=== PATIENT | male | born 1950 | race Caucasian/White ===

== ENCOUNTER 2018-04-03 15:17 | Emergency (ER) | payer MEDICARE ==
[~2018-04-03] VITALS: Ht 170.2 cm; Wt 92.2 kg
[2018-04-03 15:28] VITALS: BP 152/78
[2018-04-03] MEDS ORDERED: PROPOFOL 200 MG/20 ML VIAL IV ONE (16:45)
[2018-04-03 18:29] VITALS: BP 147/72
== END 2018-04-03 18:28 | disposition home or self-care (01) ==
LOC: MED 15:17
DX: S43.014A Anterior dislocation of right humerus, initial encounter (principal); S00.81XA Abrasion of other part of head, initial encounter; I10 Essential (primary) hypertension; W18.39XA Other fall on same level, initial encounter; Y93.89 Activity, other specified; Y92.148 Other place in prison as the place of occurrence of the external cause; Y99.8 Other external cause status
CPT/HCPCS: 23650; 73020; 99285; G0500; J2704; Q0092

== ENCOUNTER 2019-05-16 21:47 | Emergency (ER) | payer MEDICARE ==
[~2019-05-16] VITALS: Ht 170.2 cm; Wt 88.0 kg
[2019-05-16 22:09] VITALS: BP 166/88
--- NOTE | 2019-05-16 22:12 | NUR ---
PT AMBULATED TO BED #10
--- NOTE | 2019-05-16 22:30 | NUR ---
PATIENT WAS SEEN, TREATED, AND DISCHARGED BY DR HERNANDEZ. Patient discharged with v/s stable. Written and verbal after care instructions about viral and bacterial pharyngitis given and explained. Patient alert, oriented and verbalized understanding of instructions. Ambulatory with steady gait. All questions addressed prior to discharge. ID band removed. Patient advised to follow up with PMD. Rx of Augmentin given. Patient educated on indication of medication including possible reaction and side effects. Opportunity to ask questions provided and answered.
[2019-05-16 22:37] VITALS: BP 166/88
== END 2019-05-16 22:30 | disposition home or self-care (01) ==
LOC: MED 21:47
DX: J02.9 Acute pharyngitis, unspecified (principal); I10 Essential (primary) hypertension
CPT/HCPCS: 99283

== ENCOUNTER 2020-03-07 11:18 | Inpatient (IN) | payer MEDICARE, SELFPAY ==
[~2020-03-07] VITALS: Ht 170.2 cm; Wt 83.9 kg
[2020-03-07 11:26] VITALS: BP 127/73
--- NOTE | 2020-03-07 11:27 | NUR ---
PATIENT AMBULATED WITH STEADY GAIT TO BED 3.
--- NOTE | 2020-03-07 11:34 | NUR ---
69 YEAR OLD MALE COMPLAINS OF COUGH X 1 WEEK. PT DENIES SOB, BUT O2 SATURATION 89% ON RA. PT PLACED ON 3L NC, O2 SATURATION NOW 95%, RR 21. PT AOX4, BREATHING EVEN AND UNLABORED, SKIN WARM AND DRY. BED IN LOWEST POSITION, LOCKED, BED RAIL UPX1. PMH - HTN ALLERGIES - NKA
--- NOTE | 2020-03-07 12:27 | NUR ---
Influenza, Covid PCR and Teresa swab collected.
[2020-03-07 13:02] LABS: BASOPHILS % (AUTO) 0.7 % (0.0-2.0); HEMATOCRIT 41.7 % (36-52); LYMPHOCYTES # (AUTO) 0.9 K/uL (2.0-11.5); LYMPHOCYTES % (AUTO) 17.3 % (20.5-51.1); MEAN CORPUSCULAR HEMOGLOBIN 31 pg (27-31); MEAN CORPUSCULAR HGB CONC 34 g/dL (33-37); MEAN CORPUSCULAR VOLUME 93.1 fL (80-94); MONOCYTES # (AUTO) 0.4 K/uL (0.8-1.0); NEUTROPHILS # (AUTO) 3.8 K/uL (1.8-7.7); PLATELET COUNT (AUTO) 195 K/uL (140-450); RED BLOOD CELL COUNT(AUTO) 4.48 MIL/uL (4.20-6.10); RED CELL DISTRIBUTION WIDTH 13.1 % (11.6-13.7); WHITE BLOOD COUNT (AUTO) 5.1 K/uL (4.8-10.8)
[2020-03-07 13:23] LABS: APPEARANCE,URINE CLEAR (CLEAR); BILIRUBIN,URINE 1+ (NEGATIVE); BLOOD, URINE NEGATIVE (NEGATIVE); COLOR,URINE YELLOW (YELLOW); LEUKOCYTE ESTERASE ,URINE NEGATIVE (NEGATIVE); NITRITE, URINE NEGATIVE (NEGATIVE); UGLUCOSE NEGATIVE (NEGATIVE)
[2020-03-07 13:37] LABS: LACTATE DEHYDROGENASE 319 U/L (85-227)
[2020-03-07] MEDS ORDERED: AZITHROMYCIN 500 MG in DEXTROSE 5% 250 ML IV ONE (13:45)
[2020-03-07] MEDS ORDERED: DEXAMETHASONE 4 MG/ML VIAL IVP ONE (13:45)
[2020-03-07 13:46] LABS: ANION GAP 13.1 (8-16); CARBON DIOXIDE 25.4 mmol/L (21-32); CREATININE 0.7 mg/dL (0.6-1.3); POTASSIUM 3.5 mmol/L (3.5-5.1); TOTAL BILIRUBIN 0.3 mg/dL (0.0-1.0)
[2020-03-07] MEDS ORDERED: cefTRIAXone 1,000 MG VIAL ONE (13:55)
[2020-03-07 14:08] LABS: C-REACTIVE PROTEIN QUANT 13.8 mg/dL (0.0-0.9)
[2020-03-07] MEDS ORDERED: ENAL-197 PO (14:17)
--- NOTE | 2020-03-07 14:30 | NUR ---
PT ALERT AND AWAKE, BREATHING EVEN AND UNLABORED. NO DISTRESS NOTED.
[2020-03-07] MEDS ORDERED: AZITHROMYCIN 500 MG INJ VIAL IV ONE (14:33)
[2020-03-07] MEDS ORDERED: HYDROcodone/APAP 7.5/325 MG 1 TAB PO PRN (15:00)
[2020-03-07] MEDS ORDERED: DOCUSATE SODIUM 100 MG GELCAP PO PRN (15:00)
[2020-03-07] MEDS ORDERED: ACETAMINOPHEN 325 MG TAB PO PRN (15:00)
[2020-03-07] MEDS ORDERED: ONDANSETRON 4 MG/2 ML VIAL IM/IVP PRN (15:00)
[2020-03-07] MEDS ORDERED: guaiFENesin DM 200/20 MG-10 ML 10 ML UDC PO PRN (15:00)
[2020-03-07] MEDS ORDERED: POTASSIUM CHLORIDE 10 MEQ TABER PO PRN (15:00)
[2020-03-07] MEDS ORDERED: ZOLPIDEM 5 MG TAB PO PRN (15:00)
[2020-03-07] MEDS ORDERED: ALBUTEROL SULFATE/IPRATROPIU 3 ML SOL IH PRN (15:05)
[2020-03-07] MEDS ORDERED: ALBUTEROL HFA MDI 90 MCG/ACTUATION 8 GM INH PRN (15:05)
[2020-03-07] MEDS: NACL 0.9% 1,000 ML IV SCH (15:29)
[2020-03-07 16:12] LABS: BARBITURATE, URINE NEGATIVE ng/ml (NEG <=200); BENZODIAZEPINE, URINE NEGATIVE ng/mL (NEG <=200); CANNABINOID, URINE NEGATIVE ng/mL (NEG <=50); COCAINE, URINE NEGATIVE ng/mL (NEG <=300); OPIATE, URINE NEGATIVE ng/mL (NEG <=2000); PHENCYCLIDINE SCREEN,URINE NEGATIVE ng/mL (NEG <=25)
[2020-03-07 16:31] LABS: CHOL/HDL RATIO 3.1 (1-4.5); FREE T4 (FREE THYROXINE) 1.25 ng/dL (0.76-1.46); MAGNESIUM 2.3 mg/dL (1.8-2.4); THYROID STIMULATING HORMONE 1.15 uIU/mL (0.34-3.74)
--- NOTE | 2020-03-07 16:48 | NUR ---
PT ALERT AND AWAKE, BREATHING EVEN AND UNLABORED. NO DISTRESS NOTED.
--- NOTE | 2020-03-07 18:35 | NUR ---
PT ALERT AND AWAKE, BREATHING EVEN AND UNLABORED. NO DISTRESS NOTED.
[2020-03-07] MEDS ORDERED: ALBUTEROL SULFATE/IPRATROPIU 3 ML SOL IH SCH (19:00)
--- NOTE | 2020-03-07 19:20 | NUR ---
RECEIVED REPORT FROM MARIELY BURCH FOR CONTINUITY OF CARE.
--- NOTE | 2020-03-07 19:20 | NUR ---
REPORT GIVEN TO TOMMY BURCH, TRANSFER OF CARE AT THIS TIME.
--- NOTE | 2020-03-07 19:45 | NUR ---
PT OBSERVED SITTING IN BED IN NO ACUTE DISTRESS NOTED. BREATHING EVEN AND UNLABORED SPO2 91% VIA NC AT 2 L OF OXYGEN. IVF OF 0.9% NS RUNNING AT THIS TIME ON HIS IV R AC. HE PRESENTS WITH A PRODUCTIVE COUGH. ON CARDIAC MONITORING, BP MONITORING, AND PULSE OXIMETRY. WILL CONTINUE TO MONITOR.
--- NOTE | 2020-03-07 20:15 | NUR ---
PT WAS GIVEN HIS DINNER AT THIS TIME.
--- NOTE | 2020-03-07 20:45 | NUR ---
PT ATE 100% OF HIS DINNER.
--- NOTE | 2020-03-07 21:20 | NUR ---
PT WAS NOTED DESATURATING WHILE ON 2 L VIA NC, INCREASED PT'S OXYGEN AT THIS TIME TO 4 L. WILL CONTINUE TO MONITOR.
--- NOTE | 2020-03-07 23:32 | NUR ---
PT SITTING IN BED IN NO ACUTE DISTRESS NOTED. BREATHING EVEN AND UNLABORED EVIDENCE BY RISE AND FALL OF CHEST WALL. O2 SAT AT 95% ON 4L OF OXYGEN. REMAINS ON CARDIAC MONITORING, BP MONITORING, AND PULSE OXIMETRY.
--- NOTE | 2020-03-08 00:50 | NUR ---
PT WAS NOTED DESATURATING ON 4 L OF OXYGEN VIA NC. PT'S PXYGEN WAS INCREASED FROM 4L TO 6 L. SATURATION IMPROVED FROM 89% TO 92%.
--- NOTE | 2020-03-08 02:31 | NUR ---
PT LAYING IN BED IN NO ACUTE DISTRESS NOTED. BREATHING EVEN AND UNLABORED EVIDENCE BY RISE AND FALL OF CHEST WALL. O2 SAT AT 92% ON 6L OF OXYGEN. REMAINS ON CARDIAC MONITORING, BP MONITORING, AND PULSE OXIMETRY.
--- NOTE | 2020-03-08 05:46 | NUR ---
PT LAYING IN BED IN NO ACUTE DISTRESS NOTED. BREATHING EVEN AND UNLABORED EVIDENCE BY RISE AND FALL OF CHEST WALL. O2 SAT AT 94% ON 6L OF OXYGEN. REMAINS ON CARDIAC MONITORING, BP MONITORING, AND PULSE OXIMETRY.
--- NOTE | 2020-03-08 07:23 | NUR ---
REPORT GIVEN TO WINSTON BURCH FOR CONTINUITY OF CARE.
--- NOTE | 2020-03-08 07:32 | NUR ---
ASSUMED CARE OF PATIENT FROM KIERSTEN SANCHEZ. A/O X 4, VSS, NAD, RR EVEN AND UNLABORED. PATIENT DENIES PAIN AT THIS TIME. AWAITING TELE BED. WILL CONTINUE TO MONITOR.
[2020-03-08 08:07] LABS: T4 (THYROXINE) 6.5 ug/dL (4.5-12.0)
[2020-03-08 09:00] VITALS: BP 147/83
[2020-03-08] MEDS ORDERED: ASCORBIC ACID 500 MG TAB PO SCH (09:00)
[2020-03-08] MEDS ORDERED: ZINC SULF 220 MG CAP PO SCH (09:00)
[2020-03-08] MEDS ORDERED: AZITHROMYCIN 250 MG TAB PO SCH (09:00)
--- NOTE | 2020-03-08 09:00 | NUR ---
ADMITTED A MALE 69 Y/O FROM ER VIA GURNEY WITH THE CHIEF COMPLAINT OF COUGH AND BODY ACHES X 1 WEEK. PATIENT ALERT AWAKE ORIENTED X4, NOT IN ANY DISTRESS NOTED. WITH O2 @ 6L NC SATURATION 92%. DENIES PAIN. NO IV WHEN PATIENT CAME CALLED ER AND PUT IV ON THE RIGHT AC GAUGE 20. PUT ON MONITOR AND SHOWS SR, NO ECTOPY NOTED. NO SOB NOTED. ORIEN TO THE FLOOR. CALL LIGHT WITHIN REACH. WILL CONTINUE TO MONITOR.
[2020-03-08] MEDS: PANTOPRAZOLE 40 MG TABEC PO SCH (09:36)
[2020-03-08] MEDS: ASCORBIC ACID 500 MG TAB PO SCH (09:36)
[2020-03-08] MEDS: ZINC SULF 220 MG CAP PO SCH (09:37)
[2020-03-08] MEDS: NACL 0.9% 1,000 ML IV SCH (09:38)
--- NOTE | 2020-03-08 09:39 | NUR ---
NS IV @60 ML/HR STARTED AND INFUSING WELL. PATIENT TITRATE 02 TO 4L NC, SATURATION 96%. NO C/O SOB NOTED.
[2020-03-08 09:55] LABS: BASOPHILS % (AUTO) 0.2 % (0.0-2.0); HEMATOCRIT 47.6 % (36-52); HEMOGLOBIN 16.2 g/dL (12.0-18.0); LYMPHOCYTES # (AUTO) 1.1 K/uL (2.0-11.5); LYMPHOCYTES % (AUTO) 17.3 % (20.5-51.1); MEAN CORPUSCULAR HEMOGLOBIN 32 pg (27-31); MEAN CORPUSCULAR HGB CONC 34 g/dL (33-37); MEAN CORPUSCULAR VOLUME 93.9 fL (80-94); MONOCYTES # (AUTO) 0.5 K/uL (0.8-1.0); MONOCYTES % (AUTO) 8.5 % (1.7-9.3); NEUTROPHILS # (AUTO) 4.5 K/uL (1.8-7.7); PLATELET COUNT (AUTO) 219 K/uL (140-450); RED BLOOD CELL COUNT(AUTO) 5.07 MIL/uL (4.20-6.10); RED CELL DISTRIBUTION WIDTH 13.2 % (11.6-13.7); WHITE BLOOD COUNT (AUTO) 6.1 K/uL (4.8-10.8)
[2020-03-08 10:12] LABS: ANION GAP 13.5 (8-16); CARBON DIOXIDE 26.4 mmol/L (21-32); CREATININE 0.7 mg/dL (0.6-1.3); POTASSIUM 3.9 mmol/L (3.5-5.1)
--- NOTE | 2020-03-08 11:08 | NUR ---
SOCIAL WORK NOTE: Patient's Orientation Unable To Assess Information Provided By KAIT PARESH Darnell - SON Comments SW WAS UNABLE TO MEET PATIENT AT BEDSIDE DUE TO MEDICAL CONDITION. SW COMPLETED ASSESSMENT WITH PATIENT'S SON. KAIT REQUESTED TO ADD SON TOMMIE YODER TO EMERGENCY CONTACT. Cost Recovery Technician, Realtionship and Phone Number KAIT [facility] [phone] TOMMIE [facility] [phone] Healthcare Power of Biomedical Equipment Technician No Does Patient Have a POLST No Identifying Problems No Social Work Triggers Is A Social Work Consult Needed No Mandate Report Filed No Explanation Of Identifying Problems PATIENT IS A 69-YEAR-OLD MALE ADMITTED FOR BILATERAL PNA AND COVID. PATIENT HAS PMHX OF HYPERTENSION. Admitted From Home Pre-Admission Level Of Functioning Status Independent/Ambulatory Prior Resources/Services Used In Last 12 Months No Prior Resources Used Prior DME No Prior DME Used Dialysis Comments N/A Living Situation Lives With Family Mobile Home Other Living Situation/Comment PER KAIT, PATIENT LIVES WITH OTHER SON, TOMMIE YODER. Patient Had Caregiver No Home Support No Caregiver Issues Financial Issues No Known Financial Issue Referral To The Financial Counselor Needed No Factors/Needs No D/C Needs Identified Explanation And Or Other Factors Affecting/Possible DC Needs PATIENT'S SON STATED HE WOULD ARRANGE TRANSPORATION FOR PATIENT AT DISCHARGE. Pt/Rep Participated In Discharge Plan Yes Patient/Family Agress With Discharge Plan Yes Discharge Plan Comments TENTATIVE DISCHARGE PLAN IS FOR PATIENT TO RETURN HOME. DC Plan Status Initiated
[2020-03-08 12:00] VITALS: BP_SYST 101; BP_SYST 147; BP_DIAS 58; BP_DIAS 83
--- NOTE | 2020-03-08 12:00 | NUR ---
PATIENT RESTING IN BED, NO C/O PAIN AND SOB.
--- NOTE | 2020-03-08 16:38 | NUR ---
PATIENT HAS BEEN SCREENED AND CATEGORIZED MODERATE NUTRITION RISK. PATIENT WILL BE SEEN WITHIN 3-5 DAYS OF ADMISSION. 03/10/20 03/12/[address]
--- NOTE | 2020-03-08 18:34 | NUR ---
EATING DINNER WITH GOOD APPETITE. NOT IN RESPIRATORY DISTRESS. WILL CONTINUE TO MONITOR.
--- NOTE | 2020-03-08 19:34 | NUR ---
REPORT GIVEN TO THE STITCHER FEEDER FOR CONTINUITY OF CARE. IN STABLE CONDITION.
--- NOTE | 2020-03-08 19:35 | NUR ---
RECEIVED REPORT FROM DONALD RNCALVIN. PT AOX4 ON O2 4L N/C. NO S/S RESPIRATORY DISTRESS, NO C/O PAIN AT THIS TIME. IV SITE RAC 20G PATENT AND INTACT, INFUSING NS AT 60 ML/HR. SAFETY PRECAUTIONS IN PLACE. CALL LIGHT WITHIN REACH. WILL CONTINUE TO MONITOR
[2020-03-08 20:00] VITALS: BP 155/81
--- NOTE | 2020-03-08 21:20 | NUR ---
ADMINISTERED SCHEDULED MEDICATION. PT TOLERATED WELL. WILL CONTINUE TO MONITOR
--- NOTE | 2020-03-08 23:45 | NUR ---
PT AWAKE TALKING ON THE PHONE. NO DISTRESS NOTED. WILL CONTINUE TO MONITOR
[2020-03-09] VITALS: BP 143/72
[2020-03-09] MEDS: NACL 0.9% 1,000 ML IV SCH (00:20)
--- NOTE | 2020-03-09 02:45 | NUR ---
PT ASLEEP IN BED. RESPIRATIONS EVEN AND UNLABORED. WILL CONTINUE TO MONITOR
[2020-03-09] MEDS ORDERED: remdesivir COMMUNICATION ORDER 1 EA MISC MC PRN (03:45)
[2020-03-09 04:00] VITALS: BP 149/80
--- NOTE | 2020-03-09 05:30 | NUR ---
PT ASLEEP IN BED. NO DISTRESS NOTED. WILL CONTINUE TO MONITOR
[2020-03-09 07:10] LABS: BASOPHILS % (AUTO) 0.1 % (0.0-2.0); HEMATOCRIT 41.1 % (36-52); HEMOGLOBIN 13.9 g/dL (12.0-18.0); LYMPHOCYTES # (AUTO) 0.7 K/uL (2.0-11.5); LYMPHOCYTES % (AUTO) 7.5 % (20.5-51.1); MEAN CORPUSCULAR HEMOGLOBIN 32 pg (27-31); MEAN CORPUSCULAR HGB CONC 34 g/dL (33-37); MEAN CORPUSCULAR VOLUME 92.8 fL (80-94); MONOCYTES # (AUTO) 0.6 K/uL (0.8-1.0); MONOCYTES % (AUTO) 6.7 % (1.7-9.3); NEUTROPHILS # (AUTO) 7.6 K/uL (1.8-7.7); NEUTROPHILS % (AUTO) 85.7 % (42.2-75.2); PLATELET COUNT (AUTO) 257 K/uL (140-450); RED BLOOD CELL COUNT(AUTO) 4.42 MIL/uL (4.20-6.10); RED CELL DISTRIBUTION WIDTH 12.7 % (11.6-13.7); WHITE BLOOD COUNT (AUTO) 8.9 K/uL (4.8-10.8)
[2020-03-09 07:32] LABS: ANION GAP 12.1 (8-16); CARBON DIOXIDE 25.7 mmol/L (21-32); CREATININE 0.6 mg/dL (0.6-1.3); POTASSIUM 3.8 mmol/L (3.5-5.1)
--- NOTE | 2020-03-09 07:50 | NUR ---
ENDORSED PT TO DAY RN FOR CONTINUITY OF CARE. PT IS IN STABLE CONDITION
--- NOTE | 2020-03-09 07:51 | NUR ---
RECEIVED REPORT FROM SPECIAL DAY CLASS TEACHER RN FOR CONTINUITY OF CARE. PATIENT AWAKE, RESTING IN BED WITH NO ACUTE DISTRESS NOTED. RESPIRATORY EVEN AND UNLABORED IN RA. SKIN WARM AND DRY. SAFETY MEASURES IN PLACE, CALL LIGHT WITHIN REACH. WILL CONTINUE TO MONITOR.
[2020-03-09 08:00] VITALS: BP 150/84
[2020-03-09] MEDS: ZINC SULF 220 MG CAP PO SCH (09:55)
[2020-03-09] MEDS: ASCORBIC ACID 500 MG TAB PO SCH (09:55)
[2020-03-09] MEDS: PANTOPRAZOLE 40 MG TABEC PO SCH (09:55)
--- NOTE | 2020-03-09 09:57 | NUR ---
SCHEDULED MORNING MEDICATIONS GIVEN, EDUCATION PROVIDED. PATIENT DENIES PAIN OR SOB ON ROOM AIR. PATIENT WANTED TO GO HOME. WILL INFORM DR. LÓPEZ.
[2020-03-09] MEDS ORDERED: remdesivir CLINICAL MONITORING 1 EA MISC MC PRN (10:00)
[2020-03-09] MEDS ORDERED: ASPI-1205 PO (10:49)
[2020-03-09] MEDS ORDERED: DEC1 PO (10:49)
[2020-03-09] MEDS ORDERED: ENAL-197 PO (10:49)
[2020-03-09] MEDS ORDERED: AZIT250T3 PO (10:49)
[2020-03-09] MEDS ORDERED: FLU VACCINE QS2020-21 0.5 ML SYR IMVAC PRN (11:10)
--- NOTE | 2020-03-09 11:20 | NUR ---
FLU VACCINE GIVEN AT RIGHT DELTOID. EDUCATION PROVIDED. PATIENT TOLERATED WELL. SAFETY MEASURES IN PLACE. DISCHARGE ORDER RECEIVED. WILL WORK ON THE DISCHARGE.
--- NOTE | 2020-03-09 11:55 | NUR ---
DISCHARGE INSTRUCTIONS PROVIDED, DISCHARGE PAPER SIGNED. PATIENT VERBALIZED UNDERSTANDING OF THE TEACHINGS. PATIENT IN STABLE CONDITION.
[2020-03-09] MEDS ORDERED: REMDESIVIR (EUA) 200 MG in NACL 0.9% 100 ML IV SCH (12:00)
--- NOTE | 2020-03-09 12:12 | NUR ---
WALKED PATIENT TO THE FRONT LOBBY, PATIENT IN STABLE CONDITION. PATIENT BEING DISCHARGED.
[2020-03-10] MEDS ORDERED: REMDESIVIR (EUA) 100 MG in NACL 0.9% 100 ML IV SCH (12:00)
== END 2020-03-09 12:12 | disposition home or self-care (01) | DRG 177 ==
LOC: MED 11:18 → MTU 16:59
PROVIDERS: ADMIT Family Medicine; ATTEND Family Medicine
PROC: XW033E5 Introduction of Remdesivir Anti-infective into Peripheral Vein, Percutaneous Approach, New Technology Group 5 (ICD-10-PCS; principal; 2020-03-09)
DX: U07.1 COVID-19 (principal); J12.89 Other viral pneumonia; J96.01 Acute respiratory failure with hypoxia; E44.0 Moderate protein-calorie malnutrition; E87.1 Hypo-osmolality and hyponatremia; E86.0 Dehydration; I10 Essential (primary) hypertension; Z68.29 Body mass index [BMI] 29.0-29.9, adult
CPT/HCPCS: 36415; 36600; 71045; 80048; 80053; 80305; 81003; 82150; 82550; 82728; 82803; 83036; 83605; 83615; 83690; 83735; 83880; 84100; 84436; 84439; 84443; 84479; 84484; 85025; 85379; 85384; 85610; 85651; 85730; 86140; 86886; 86900; 86901; 87040; 87081; 87086; 87804; 93005; 96365; 99291; J0456; J0696; J1100; J1644; J7060; U0003

== ENCOUNTER 2021-11-07 08:55 | Emergency (ER) | payer MEDICARE, OTHER ==
[~2021-11-07] VITALS: Ht 170.2 cm; Wt 91.2 kg
[~2021-11-07 08:55] MED LIST: ASPI-1205 PO; AZIT250T3 PO; DEC1 PO; ENAL-197 PO
[2021-11-07 09:05] VITALS: BP 162/78
--- NOTE | 2021-11-07 09:10 | NUR ---
BIB SELF C/O COUGH, CONGESTION, & MID CHEST& MID BACK PAIN WHILE COUGHING X 2 DAYS. PMH: DENIES
--- NOTE | 2021-11-07 09:12 | NUR ---
COVID KAMINI, FLU SWABS DONE.
[2021-11-07] MEDS ORDERED: ALBUTEROL SULFATE/IPRATROPIU 3 ML SOL IH ONE (11:05)
[2021-11-07] MEDS ORDERED: ALBU0.0912 IH (11:55)
[2021-11-07] MEDS ORDERED: LORA10TA19 PO (11:55)
[2021-11-07 12:09] VITALS: BP 180/91
--- NOTE | 2021-11-07 12:09 | NUR ---
Patient discharged with BP 180/91 DENIES CAMACHO OR DIZZINESS AT THIS TIME, MD MADE AWARE. Written and verbal after care instructions given and explained. Patient alert, oriented and verbalized understanding of instructions. Ambulatory with steady gait. All questions addressed prior to discharge. ID band removed. Patient advised to follow up with PMD. Rx of CLARITIN,VENTOLIN given. Patient educated on indication of medication including possible reaction and side effects. Opportunity to ask questions provided and answered.
== END 2021-11-07 12:09 | disposition home or self-care (01) ==
LOC: MED 08:55
DX: J98.01 Acute bronchospasm (principal); Z20.822 Contact with and (suspected) exposure to COVID-19; I10 Essential (primary) hypertension; Z72.89 Other problems related to lifestyle
CPT/HCPCS: 71045; 94640; 99284

== ENCOUNTER 2022-08-05 16:37 | Emergency (ER) | payer MEDICARE, OTHER ==
[~2022-08-05] VITALS: Ht 162.6 cm; Wt 92.1 kg
[~2022-08-05 16:37] MED LIST changes: +ALBU0.0912 IH; +LORA10TA19 PO
[2022-08-05 16:56] VITALS: BP 153/70
[2022-08-05] MEDS ORDERED: AZIT250T3 PO (18:21)
[2022-08-05] MEDS ORDERED: PRED20TA5 PO (18:21)
[2022-08-05] MEDS ORDERED: PROM118S6 PO (18:21)
[2022-08-05 19:07] VITALS: BP 156/82
--- NOTE | 2022-08-05 19:08 | NUR ---
Patient discharged with v/s stable. Written and verbal after care instructions given and explained. Patient verbalized understanding. Ambulatory with steady gait. All questions addressed prior to discharge. Advised to follow up with PMD. PNA, PT. WITH NO ACUTE DISTRESS. AWAKE AND ALERT NO SOB. STABLE FOR D/C
== END 2022-08-05 19:07 | disposition home or self-care (01) ==
LOC: MED 16:37
DX: J18.9 Pneumonia, unspecified organism (principal)
CPT/HCPCS: 71045; 99283

== ENCOUNTER 2022-09-02 13:55 | Emergency (ER) | payer MEDICARE ==
[~2022-09-02] VITALS: Ht 170.2 cm; Wt 93.4 kg
[~2022-09-02 13:55] MED LIST changes: +PRED20TA5 PO; +PROM118S6 PO
[2022-09-02 13:58] VITALS: BP 170/80
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
--- NOTE | 2022-09-02 14:32 | NUR ---
pt concerned if burn wound is healing right
[2022-09-02] MEDS ORDERED: BACITRACIN OINT 500 UNITS/GM PKT TP ONE (15:00)
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
[2022-09-02] MEDS ORDERED: BACO TP (15:24)
[2022-09-02 15:58] VITALS: BP 168/78
--- NOTE | 2022-09-02 15:58 | NUR ---
Patient discharged with v/s stable. Written and verbal after care instructions given and explained. Patient verbalized understanding. Ambulatory with steady gait. All questions addressed prior to discharge. Advised to follow up with PMD.
== END 2022-09-02 15:58 | disposition home or self-care (01) ==
LOC: MED 13:55
DX: T23.231A Burn of second degree of multiple right fingers (nail), not including thumb, initial encounter (principal); I10 Essential (primary) hypertension; Z79.899 Other long term (current) drug therapy; W86.0XXA Exposure to domestic wiring and appliances, initial encounter; Y93.89 Activity, other specified; Y92.098 Other place in other non-institutional residence as the place of occurrence of the external cause; Y99.8 Other external cause status
CPT/HCPCS: 16020; 99282

== ENCOUNTER 2022-10-25 07:04 | Inpatient (IN) | payer MEDICARE ==
[~2022-10-25] VITALS: Ht 170.2 cm; Wt 99.3 kg
[2022-10-25] VITALS (8 sets, daily range): BP systolic 119–134; BP diastolic 67–82; PULSE 52–95; RESP 16–20; TEMP 97.8–98.6; O2SAT 89–99
[~2022-10-25 07:04] MED LIST changes: +BACO TP
--- NOTE | 2022-10-25 07:55 | NUR ---
72YO M W/STEADY GAIT PRESENTS WITH MULTIPLE COMPLAINTS, EDEMA TO BILAT, SOB/WHEEZING WHEN LAYING FLAT ON BED X 2 WEEKS, BILAT LEG SWELLING WORSE X 5 DAYS. PT DENIES CP, N, V, D, CAMACHO, VISION CHANGES, CARDIAC DISEASE, CHF, CAD, KS, STROKE. PT STATES PCP PRESCRIBED BABY ASPIRIN BUT NOT TAKING IT. VISUAL NON-PITTING EDEMA TO BILAT LEG ,WHEEZING AT EXPIRATION. SMALL BLISTERS TO RT FOOT NOTED, PT STATES HE HAS NOTICED THEM IN THE PAST WEEK. NAD NOTED, SAFETY MAINTAINED, CALL LIGHT WITHIN REACH. HX: HTN NKA
[2022-10-25 08:09] LABS: BASOPHILS # (AUTO) 0.1 K/uL (0.00-0.22); BASOPHILS % (AUTO) 0.9 % (0.0-2.0); EOSINOPHILS # (AUTO) 0.2 K/uL (0-0.4); EOSINOPHILS % (AUTO) 2.3 % (0.0-4.0); HEMATOCRIT 38.7 % (36-52); HEMOGLOBIN 12.8 g/dL (12.0-18.0); LYMPHOCYTES # (AUTO) 1.4 K/uL (2.0-11.5); LYMPHOCYTES % (AUTO) 16.6 % (20.5-51.1); MEAN CORPUSCULAR HEMOGLOBIN 31 pg (27-31); MEAN CORPUSCULAR HGB CONC 33 g/dL (33-37); MEAN CORPUSCULAR VOLUME 93.4 fL (80-94); MONOCYTES # (AUTO) 0.9 K/uL (0.8-1.0); NEUTROPHILS # (AUTO) 5.9 K/uL (1.8-7.7); NEUTROPHILS % (AUTO) 69.2 % (42.2-75.2); PLATELET COUNT (AUTO) 310 K/uL (140-450); RED BLOOD CELL COUNT(AUTO) 4.15 MIL/uL (4.20-6.10); RED CELL DISTRIBUTION WIDTH 14.1 % (11.6-13.7); WHITE BLOOD COUNT (AUTO) 8.5 K/uL (4.8-10.8)
--- NOTE | 2022-10-25 08:09 | NUR ---
X-RAY AT BEDSIDE
[2022-10-25 08:20] LABS: ALBUMIN 3.3 g/dL (3.4-5.0); ANION GAP 10.9 (8-16); CARBON DIOXIDE 29.6 mmol/L (21-32); CREATININE 0.8 mg/dL (0.6-1.3); POTASSIUM 3.5 mmol/L (3.5-5.1); TOTAL BILIRUBIN 0.3 mg/dL (0.0-1.0)
[2022-10-25] MEDS ORDERED: FUROSEMIDE 40 MG/4 ML VIAL IVP ONE (09:15)
[2022-10-25] MEDS ORDERED: ALBUTEROL SULFATE/IPRATROPIU 3 ML SOL IH ONE (09:15)
--- NOTE | 2022-10-25 09:49 | NUR ---
RT AT BEDSIDE ADMINISTERING BREATHING THREATMENT
[2022-10-25] MEDS ORDERED: DOCUSATE SODIUM 100 MG GELCAP PO PRN (10:15)
[2022-10-25] MEDS ORDERED: POTASSIUM CHLORIDE 10 MEQ TABER PO PRN (10:15)
[2022-10-25] MEDS ORDERED: ACETAMINOPHEN 325 MG TAB PO PRN (10:15)
[2022-10-25] MEDS ORDERED: ZOLPIDEM 5 MG TAB PO PRN (10:15)
[2022-10-25] MEDS ORDERED: ONDANSETRON 4 MG/2 ML VIAL IM/IVP PRN (10:15)
[2022-10-25] MEDS ORDERED: HYDROcodone/APAP 7.5/325 MG 1 TAB PO PRN (10:15)
[2022-10-25] MEDS ORDERED: guaiFENesin DM 200/20 MG-10 ML 10 ML UDC PO PRN (10:15)
[2022-10-25 11:19] LABS: PROTHROMBIN TIME 10.8 secs (10.8-13.4)
--- NOTE | 2022-10-25 11:24 | NUR ---
Patient will be admitted to care of KODY LÓPEZ. Admited to TELE. Will go to [id number]. Belongings list completed. Report to SPENCER BURCH.
[2022-10-25 11:30] LABS: CHOL/HDL RATIO 3.1 (1-4.5); FREE T4 (FREE THYROXINE) 1.21 ng/dL (0.76-1.46); MAGNESIUM 2.3 mg/dL (1.8-2.4); PHOSPHORUS 3.6 mg/dL (2.5-4.9); THYROID STIMULATING HORMONE 1.65 uIU/mL (0.34-3.74)
--- NOTE | 2022-10-25 11:30 | NUR ---
RECEIVED REPORT FROM RECYCLE WORKER, PT ARRIVED VIA GURNEY THEN WALKED TO HIS BED. PT IS AMBULATORY AND STEADY GAIT. ON 2L NC, NO SIGN OF DISTRESS. ORIENTED PT TO THE NEW ENVIRONMENT, TV, TELEPHONE, CALL LIGHT, BATHROOM AND BED MECHANICS. CALL LIGHT WITHIN REACH.
--- NOTE | 2022-10-25 12:38 | NUR ---
PATIENT HAS BEEN SCREENED AND CATEGORIZED MODERATE NUTRITION RISK. PATIENT WILL BE SEEN WITHIN 3-5 DAYS OF ADMISSION. 10/28/22-10/30/[address]
[2022-10-25 16:35] LABS: APPEARANCE,URINE CLEAR (CLEAR); BILIRUBIN,URINE NEGATIVE (NEGATIVE); BLOOD, URINE NEGATIVE (NEGATIVE); COLOR,URINE YELLOW (YELLOW); LEUKOCYTE ESTERASE ,URINE NEGATIVE (NEGATIVE); NITRITE, URINE NEGATIVE (NEGATIVE); UGLUCOSE NEGATIVE (NEGATIVE)
[2022-10-25 16:41] LABS: BARBITURATE, URINE NEGATIVE ng/ml (NEG <=200); BENZODIAZEPINE, URINE NEGATIVE ng/mL (NEG <=200); CANNABINOID, URINE NEGATIVE ng/mL (NEG <=50); COCAINE, URINE NEGATIVE ng/mL (NEG <=300); OPIATE, URINE NEGATIVE ng/mL (NEG <=2000); PHENCYCLIDINE SCREEN,URINE NEGATIVE ng/mL (NEG <=25)
[2022-10-25] MEDS ORDERED: ATORVASTATIN 20 MG TAB PO SCH (17:00)
[2022-10-25] MEDS: FUROSEMIDE 40 MG/4 ML VIAL IVP SCH (17:01)
--- NOTE | 2022-10-25 19:25 | NUR ---
GAVE REPORT TO SENIOR SPECIALIST FOR CONTINUITY OF CARE, PT IS STABLE , NO SIGN OF DISTRESS. CALL LIGHT WITHIN REACH.
--- NOTE | 2022-10-25 19:26 | NUR ---
RECEIVED BEDSIDE REPORT FROM KATELYNN BURCH FOR CONTINUITY OF CARE. PATIENT IS AWAKE AND STABLE. A&OX4. VERBALLY RESPONSIVE AND ABLE TO FOLLOW COMMANDS. DENIES PAIN. ON 2L VIA NC. RESPIRATIONS EVEN AND UNLABORED WITH NO APPARENT S/SX OF ACUTE DISTRESS. IV SITE TO THE LAC 20G INTACT/PATENT SL. SKIN IS INTACT. PATIENT IS AMBULATORY. UTILIZES BEDSIDE URINAL. PLAN OF CARE AND WHITE COMMUNICATION BOARD UPDATED. ALL SAFETY MEASURES IN PLACE. CALL LIGHT WITHIN REACH. BED IN LOW/LOCKED POSITION. WILL CONTINUE TO MONITOR.
--- NOTE | 2022-10-25 20:00 | NUR ---
Patient's Plan of Care was discussed and reviewed with MAX: SARAHI
[2022-10-25] MEDS: lisinopriL 20 MG TAB PO SCH (20:10)
[2022-10-25] MEDS: METOPROLOL 25 MG TAB PO SCH (20:11)
[2022-10-25] MEDS: APIXABAN 2.5 MG TAB PO SCH (20:14)
--- NOTE | 2022-10-25 21:00 | NUR ---
ADMINISTERED SCHEDULED MEDICATION PER MD ORDER. TOLERATED WELL. DENIES PAIN. RESPIRATIONS EVEN AND UNLABORED WITH NO APPARENT S/SX OF ACUTE DISTRESS. WHITE COMMUNICATION BOARD UPDATED. ALL SAFETY MEASURES IN PLACE. CALL LIGHT WITHIN REACH. BED IN LOW/LOCKED POSITION. WILL CONTINUE TO MONITOR.
--- NOTE | 2022-10-25 23:00 | NUR ---
PATIENT CURRENTLY BRADYCARDIC ON TELE MONITOR. PATIENT IS ASYMPTOMATIC. DENIES PAIN. RESPIRATIONS EVEN AND UNLABORED WITH NO APPARENT S/SX OF ACUTE DISTRESS. NO NEEDS AT THIS TIME. WHITE COMMUNICATION BOARD UPDATED. ALL SAFETY MEASURES IN PLACE. CALL LIGHT WITHIN REACH. BED IN LOW/LOCKED POSITION. WILL CONTINUE TO MONITOR.
[2022-10-26] VITALS: BP 119/68; PULSE 55; PULSE 59; RESP 18; TEMP 98.7; O2SAT 95
--- NOTE | 2022-10-26 01:00 | NUR ---
STABLE AND ASLEEP WITH NO FACIAL GRIMACING. CHEST IS RISING AND FALLING SYMMETRICALLY. RESPIRATIONS EVEN AND UNLABORED WITH NO APPARENT S/SX OF ACUTE DISTRESS. WHITE COMMUNICATION BOARD UPDATED. ALL SAFETY MEASURES IN PLACE. CALL LIGHT WITHIN REACH. BED IN LOW/LOCKED POSITION. SIDE RAILS X2 UP. WILL CONTINUE TO MONITOR.
--- NOTE | 2022-10-26 03:00 | NUR ---
EMPTIED BEDSIDE URINAL. PATIENT IS STABLE AND ASLEEP WITH NO FACIAL GRIMACING. CHEST IS RISING AND FALLING SYMMETRICALLY. RESPIRATIONS EVEN AND UNLABORED WITH NO APPARENT S/SX OF ACUTE DISTRESS. WHITE COMMUNICATION BOARD UPDATED. ALL SAFETY MEASURES IN PLACE. CALL LIGHT WITHIN REACH. BED IN LOW/LOCKED POSITION. SIDE RAILS X2 UP. WILL CONTINUE TO MONITOR.
[2022-10-26 04:00] VITALS: BP 137/76; PULSE 54; PULSE 57; RESP 16; TEMP 97.7; O2SAT 95
--- NOTE | 2022-10-26 05:00 | NUR ---
EMPTIED BEDSIDE URINAL. PATIENT IS AWAKE AND RESTING. DENIES PAIN AT THIS TIME. RESPIRATIONS EVEN AND UNLABORED WITH NO APPARENT S/SX OF ACUTE DISTRESS. ALL NEEDS MET AT THIS TIME. WHITE COMMUNICATION BOARD UPDATED. ALL SAFETY MEASURES IN PLACE. CALL LIGHT WITHIN REACH. BED IN LOW/LOCKED POSITION. WILL CONTINUE TO MONITOR.
[2022-10-26 06:29] LABS: BASOPHILS # (AUTO) 0.1 K/uL (0.00-0.22); BASOPHILS % (AUTO) 0.6 % (0.0-2.0); EOSINOPHILS # (AUTO) 0.3 K/uL (0-0.4); EOSINOPHILS % (AUTO) 3.1 % (0.0-4.0); HEMATOCRIT 38.8 % (36-52); HEMOGLOBIN 13.1 g/dL (12.0-18.0); LYMPHOCYTES # (AUTO) 1.5 K/uL (2.0-11.5); LYMPHOCYTES % (AUTO) 18.5 % (20.5-51.1); MEAN CORPUSCULAR HEMOGLOBIN 31 pg (27-31); MEAN CORPUSCULAR HGB CONC 34 g/dL (33-37); MONOCYTES # (AUTO) 0.9 K/uL (0.8-1.0); MONOCYTES % (AUTO) 11.3 % (1.7-9.3); NEUTROPHILS # (AUTO) 5.4 K/uL (1.8-7.7); NEUTROPHILS % (AUTO) 66.5 % (42.2-75.2); PLATELET COUNT (AUTO) 326 K/uL (140-450); RED BLOOD CELL COUNT(AUTO) 4.22 MIL/uL (4.20-6.10); RED CELL DISTRIBUTION WIDTH 13.9 % (11.6-13.7); WHITE BLOOD COUNT (AUTO) 8.2 K/uL (4.8-10.8)
--- NOTE | 2022-10-26 07:01 | NUR ---
ENDORSED PATIENT TO LYNN IMMIGRATION COORDINATOR FOR CONTINUITY OF CARE. PATIENT IS STABLE.
--- NOTE | 2022-10-26 07:02 | NUR ---
RECEIVED PT FROM SAMPLE CUTTER NURSE FOR CONTINUITY OF CARE. PT IS AWAKE, AOX4. ABLE TO VERBALIZE NEEDS. RESPIRATIONS EVEN AND UNLABORED ON 2L NC. LAC 20G, SL. SKIN WARM AND DRY. CALL LIGHT WITHIN REACH, ALL SAFETY PRECAUTIONS IN PLACE.
[2022-10-26 07:08] LABS: T4 (THYROXINE) 7.1 ug/dL (4.5-12.0)
[2022-10-26 07:12] LABS: ANION GAP 8.9 (8-16); CARBON DIOXIDE 33.8 mmol/L (21-32); CREATININE 0.8 mg/dL (0.6-1.3); POTASSIUM 3.7 mmol/L (3.5-5.1)
[2022-10-26 08:00] VITALS: BP 128/75; PULSE 68; PULSE 70; RESP 16; RESP 18; TEMP 97.7; O2SAT 97; O2SAT 98
[2022-10-26] MEDS ORDERED: FUROSEMIDE 20 MG/2 ML VIAL IVP SCH (09:00)
[2022-10-26] MEDS ORDERED: lisinopriL 20 MG TAB PO SCH (09:00)
[2022-10-26] MEDS: APIXABAN 2.5 MG TAB PO SCH ×2 (09:02→20:27)
[2022-10-26] MEDS: lisinopriL 20 MG TAB PO SCH ×2 (09:04→20:25)
[2022-10-26] MEDS: METOPROLOL 25 MG TAB PO SCH ×2 (09:05→20:28)
[2022-10-26] MEDS: PANTOPRAZOLE 40 MG TABEC PO SCH (09:05)
[2022-10-26] MEDS: FUROSEMIDE 40 MG/4 ML VIAL IVP SCH ×2 (10:38→17:54)
--- NOTE | 2022-10-26 10:38 | NUR ---
IV LASIX GIVEN BY KIERSTEN DORADO.
[2022-10-26 12:00] VITALS: BP 120/66; PULSE 52; PULSE 63; RESP 18; TEMP 97.9; O2SAT 98
[2022-10-26 16:00] VITALS: BP 120/66; PULSE 52; PULSE 63; RESP 18; TEMP 97.9; O2SAT 98
--- NOTE | 2022-10-26 16:20 | NUR ---
FAMILY AT BEDSIDE. PT DENIES ANY SOB. CALL LIGHT WITHIN REACH.
--- NOTE | 2022-10-26 19:26 | NUR ---
ENDORSED PT TO UNIVERSITY CONTROLLER NURSE FOR CONTINUITY OF CARE. PT IS STABLE.
--- NOTE | 2022-10-26 19:27 | NUR ---
RECEIVED PT FROM MORNING SHIFT NURSE. PT IS AOX4, AMBULATORY, ABLE TO VERBALIZE NEEDS AND ABLE TO FOLLOW COMMANDS. PT IS ON CARDIAC DIET AND ON 2L NC. PT HAS IV ON LEFT AC GAUGE 20, SL. PT IS ON STRICT I&O. PT HAS LEFT ARMS AND BLE SCABS. NO COMPLAIN OF PAIN. NO S/S OF RESPIRATORY DISTRESS NOTED. ALL SAFETY MEASURES IMPLEMENTED. BED IN LOW POSITION, BED WHEELS ON LOCK AND CALL LIGHT WITHIN REACH.
[2022-10-26 20:00] VITALS: BP 113/67; PULSE 59; PULSE 65; RESP 18; TEMP 97.3; O2SAT 94; O2SAT 98
--- NOTE | 2022-10-26 20:27 | NUR ---
SCHEDULED AND PRESCRIBED MEDICATION WAS GIVEN TO PT EXCEPT LOPRESSOR DUE TO PULSE IS 58-63. NO COMPLAIN OF PAIN. NO S/S OF RESPIRATORY DISTRESS NOTED. ALL SAFETY MEASURES IMPLEMENTED. BED IN LOW POSITION, BED WHEELS ON LOCK AND CALL LIGHT WITHIN REACH.
--- NOTE | 2022-10-26 22:00 | NUR ---
EXPLAINED TO PT THAT HE'S ON STRICT I&O AND HAS LIMIT OF OF FLUID INTAKE OF 1.200ML/DAY. PT VERBALIZE UNDERSTANDING. NO COMPLAIN OF PAIN. NO S/S OF RESPIRATORY DISTRESS NOTED. ALL SAFETY MEASURES IMPLEMENTED. BED IN LOW POSITION, BED WHEELS ON LOCK AND CALL LIGHT WITHIN REACH.
[2022-10-27] VITALS: BP 105/65; PULSE 55; PULSE 57; RESP 18; TEMP 97.4; O2SAT 95
--- NOTE | 2022-10-27 | NUR ---
PT IS ON SLEEP. CHEST RISE AND FALL SYMMETRICALLY NOTED. RESPIRATION IS EVEN AND UNLABORED. ALL SAFETY MEASURES IMPLEMENTED. BED IN LOW POSITION, BED WHEELS ON LOCK AND CALL LIGHT WITHIN REACH.
--- NOTE | 2022-10-27 02:00 | NUR ---
CHECKED THE PT, STILL ON SLEEP. CHEST RISE AND FALL SYMMETRICALLY NOTED. RESPIRATION IS EVEN AND UNLABORED. ALL SAFETY MEASURES IMPLEMENTED. BED IN LOW POSITION, BED WHEELS ON LOCK AND CALL LIGHT WITHIN REACH.
[2022-10-27 04:00] VITALS: BP 125/78; PULSE 57; RESP 18; TEMP 97.6; O2SAT 94
--- NOTE | 2022-10-27 04:00 | NUR ---
PT WAS GIVEN WARM BLANKET PER PT REQUEST. NO COMPLAIN OF PAIN AT THIS TIME. NO S/S OF RESPIRATORY DISTRESS NOTED. ALL SAFETY MEASURES IMPLEMENTED. BED IN LOW POSITION, BED WHEELS ON LOCK AND CALL LIGHT WITHIN REACH.
[2022-10-27 06:37] LABS: BASOPHILS # (AUTO) 0.1 K/uL (0.00-0.22); BASOPHILS % (AUTO) 0.6 % (0.0-2.0); EOSINOPHILS # (AUTO) 0.2 K/uL (0-0.4); EOSINOPHILS % (AUTO) 2.2 % (0.0-4.0); HEMATOCRIT 40.7 % (36-52); HEMOGLOBIN 13.8 g/dL (12.0-18.0); LYMPHOCYTES # (AUTO) 1.7 K/uL (2.0-11.5); LYMPHOCYTES % (AUTO) 19.3 % (20.5-51.1); MEAN CORPUSCULAR HEMOGLOBIN 31 pg (27-31); MEAN CORPUSCULAR HGB CONC 34 g/dL (33-37); MEAN CORPUSCULAR VOLUME 91.7 fL (80-94); MONOCYTES % (AUTO) 11.2 % (1.7-9.3); NEUTROPHILS # (AUTO) 5.7 K/uL (1.8-7.7); NEUTROPHILS % (AUTO) 66.7 % (42.2-75.2); PLATELET COUNT (AUTO) 342 K/uL (140-450); RED BLOOD CELL COUNT(AUTO) 4.44 MIL/uL (4.20-6.10); RED CELL DISTRIBUTION WIDTH 13.9 % (11.6-13.7); WHITE BLOOD COUNT (AUTO) 8.6 K/uL (4.8-10.8)
[2022-10-27 07:05] LABS: ANION GAP 11.3 (8-16); CARBON DIOXIDE 32.1 mmol/L (21-32); CREATININE 0.7 mg/dL (0.6-1.3); POTASSIUM 3.4 mmol/L (3.5-5.1)
--- NOTE | 2022-10-27 07:16 | NUR ---
PT IS STABLE. ENDORSED PT TO MORNING SHIFT NURSE FOR CONTINUITY OF CARE.
--- NOTE | 2022-10-27 07:51 | NUR ---
RECEIVED REPORT FROM BURIAL NEEDS SALESPERSON NURSE FOR CONTINUITY OF CARE. PT IS AWAKE, ALERT AND ORIENTED X4, AMBULATORY AND CONTINENT. CURRENTLY ON ROOM AIR WITH NO SIGNS OF SOB OR ACUTE RESPIRATORY DISTRESS. PT REPORTS NO PAIN AT THIS TIME. IV SITE LOCATED AT LEFT AC 20 GAUGE, INTACT AND PATENT. SKIN WARM DRY, MINOR SCABS TO LEFT ARM AND BILATERAL LE, NO OPEN WOUNDS. POC DISCUSSED, WHITE BOARD UPDATED, VITAL SIGNS TAKEN.
[2022-10-27 08:00] VITALS: BP 132/86; PULSE 68; PULSE 70; PULSE 78; RESP 20; TEMP 97.3; O2SAT 94; O2SAT 99
--- NOTE | 2022-10-27 08:00 | NUR ---
Patient's Plan of Care was discussed and reviewed with MAX: ARETHA
[2022-10-27] MEDS: METOPROLOL 25 MG TAB PO SCH (08:10)
[2022-10-27] MEDS: lisinopriL 20 MG TAB PO SCH (08:11)
[2022-10-27] MEDS: PANTOPRAZOLE 40 MG TABEC PO SCH (08:11)
[2022-10-27] MEDS: APIXABAN 2.5 MG TAB PO SCH (08:15)
--- NOTE | 2022-10-27 08:21 | NUR ---
SCHEDULED MEDICATIONS ADMINISTERED. K-DUR 40 MEQ ADMINISTERED FOR POTASSIUM LEVEL OF 3.4, PT TOLERATED WELL.
[2022-10-27] MEDS: FUROSEMIDE 40 MG/4 ML VIAL IVP SCH (09:00)
[2022-10-27] MEDS ORDERED: LISI20TA29 PO (10:12)
[2022-10-27] MEDS ORDERED: FURO-570 PO (10:12)
[2022-10-27] MEDS ORDERED: METO25TA PO (10:12)
[2022-10-27] MEDS ORDERED: APIX2.5 PO (10:12)
[2022-10-27 10:47] VITALS: BP 132/86; PULSE 68; RESP 20; TEMP 97.3
--- NOTE | 2022-10-27 11:14 | NUR ---
PT DISCHARGED. ARM BAND, IV SITE, AND RN ENT REMOVED FROM PT. DISCHARGE INSTRUCTIONS AND PAPERWORK GIVEN TO PATIENT. PATIENT VERBALIZED UNDERSTANDING, HAD NO QUESTIONS. ALL BELONGINGS WITH PATIENT. PATIENT LEFT FACILITY WITH FAMILY AT 1110.
== END 2022-10-27 11:16 | disposition home or self-care (01) | DRG 291 ==
LOC: MED 07:04 → MTU 10:25
PROVIDERS: ADMIT Family Medicine; ATTEND Family Medicine
DX: I11.0 Hypertensive heart disease with heart failure (principal); I50.31 Acute diastolic (congestive) heart failure; I48.91 Unspecified atrial fibrillation; E78.5 Hyperlipidemia, unspecified; E83.51 Hypocalcemia; Z79.82 Long term (current) use of aspirin; Z79.899 Other long term (current) drug therapy
CPT/HCPCS: 36415; 71045; 80048; 80053; 80305; 81003; 82150; 83036; 83690; 83735; 83880; 84100; 84436; 84439; 84443; 84479; 84484; 85025; 85610; 85730; 87081; 93005; 94640; 96374; 99285; J1940; Q0092

== ENCOUNTER 2023-07-07 07:54 | Emergency (ER) | payer MEDICARE, OTHER ==
[~2023-07-07] VITALS: Ht 170.2 cm; Wt 90.7 kg
[~2023-07-07 07:54] MED LIST changes: -ALBU0.0912 IH; +APIX2.5 PO; -ASPI-1205 PO; -AZIT250T3 PO; -BACO TP; -DEC1 PO; -ENAL-197 PO; +FURO-570 PO; +LISI20TA29 PO; -LORA10TA19 PO; +METO25TA PO; -PRED20TA5 PO; -PROM118S6 PO
[2023-07-07 07:56] VITALS: BP 125/70; PULSE 85; RESP 18; TEMP 97.8; O2SAT 96
[2023-07-07] MEDS ORDERED: POLY17PD72 PO (09:17)
[2023-07-07] MEDS ORDERED: HYDR25SU91 RC (09:17)
[2023-07-07] MEDS ORDERED: DOCU-299 PO (09:17)
[2023-07-07] MEDS ORDERED: BISA-213 RC (09:18)
== END 2023-07-07 09:28 | disposition home or self-care (01) ==
LOC: MED 07:54
DX: K59.00 Constipation, unspecified (principal); K62.89 Other specified diseases of anus and rectum; I11.0 Hypertensive heart disease with heart failure; I50.9 Heart failure, unspecified; I48.91 Unspecified atrial fibrillation; E78.5 Hyperlipidemia, unspecified; Z79.899 Other long term (current) drug therapy; Z79.01 Long term (current) use of anticoagulants
CPT/HCPCS: 99283